=== PATIENT | male | born 1975 | race Caucasian/White ===

== ENCOUNTER 2021-06-26 18:57 | Emergency (ER) | payer BC ==
[2021-06-26] MEDS ORDERED: IBUPROFEN600 MG PO (20:50)
== END 2021-06-26 21:05 | disposition home or self-care (01) ==
LOC: ER1 18:57
DX: S63.502A Unspecified sprain of left wrist, initial encounter (principal); I10 Essential (primary) hypertension; W19.XXXA Unspecified fall, initial encounter
CPT/HCPCS: 29125; 73110; 96372; 99283; J1885